=== PATIENT | female | born 1950 | race Asian ===

== ENCOUNTER 2018-10-27 20:51 | Emergency (ER) | payer MEDICARE ==
[~2018-10-27] VITALS: Ht 165.1 cm; Wt 180.0 kg
[2018-10-27 21:04] LABS: GLUCOSE,POINT OF CARE 192 MG/DL (70-110)
[2018-10-27] MEDS ORDERED: CLOP75TA17 PO (21:06)
[2018-10-27] MEDS ORDERED: METF-960 PO (21:06)
[2018-10-27] MEDS ORDERED: LEVO125 PO (21:06)
[2018-10-27] MEDS ORDERED: LOSA50TA64 PO (21:06)
[2018-10-27] MEDS ORDERED: ALLO100T PO (21:06)
[2018-10-27] MEDS ORDERED: PREG50 PO (21:06)
[2018-10-27] MEDS ORDERED: TOPI25 PO (21:06)
[2018-10-27] MEDS ORDERED: AMLO-511 PO (21:06)
[2018-10-27 21:20] LABS: BASOPHILS % (AUTO) 0.8 % (0.0-2.0); EOSINOPHILS % (AUTO) 1.6 % (1.0-6.0); HEMATOCRIT 36.3 % (36-46); HEMOGLOBIN 12.4 g/dL (12.0-16.0); LYMPHOCYTES # (AUTO) 3.7 K/uL (1.0-4.8); MEAN CORPUSCULAR HEMOGLOBIN 31.8 pg (26.0-34.0); MEAN CORPUSCULAR HGB CONC 34.1 G/dL (31.0-37.0); MEAN CORPUSCULAR VOLUME 93 fL (80-100); MONOCYTES # (AUTO) 0.9 K/uL (0.1-1.0); MONOCYTES % (AUTO) 9.1 % (2.0-9.0); NEUTROPHILS # (AUTO) 5.1 K/uL (1.8-7.7); NEUTROPHILS % (AUTO) 51.5 % (40.0-70.0); PLATELET COUNT (AUTO) 152 K/uL (150-450); RED CELL DISTRIBUTION WIDTH 13.3 % (11.5-14.5)
[2018-10-27 21:24] LABS: CALCIUM, TOTAL 8.8 mg/dL (8.8-10.5); CREATININE 1.07 mg/dL (0.60-1.30); POTASSIUM 3.8 mmol/L (3.5-5.1)
[2018-10-27 21:30] LABS: ALBUMIN 3.6 g/dL (3.4-5.0); BILIRUBIN,TOTAL 0.3 mg/dL (0.1-1.0); TOTAL PROTEIN, SERUM 7.2 g/dL (6.4-8.2)
[2018-10-28 02:26] VITALS: BP 138/75
== END 2018-10-28 02:45 | disposition home or self-care (01) ==
LOC: EMS 20:52
DX: R07.9 Chest pain, unspecified (principal); R11.2 Nausea with vomiting, unspecified; R05 Cough; E11.9 Type 2 diabetes mellitus without complications; E03.9 Hypothyroidism, unspecified; I10 Essential (primary) hypertension; M19.90 Unspecified osteoarthritis, unspecified site; G43.909 Migraine, unspecified, not intractable, without status migrainosus; Z98.51 Tubal ligation status; Z79.84 Long term (current) use of oral hypoglycemic drugs; Z79.899 Other long term (current) drug therapy
CPT/HCPCS: 85379; 93005